=== PATIENT | female | born 1940 | race Caucasian/White ===

== ENCOUNTER 2017-07-11 10:55 | Day surgery (SDC) | payer OTHER ==
[2017-07-07 16:43] VITALS: BMI 20.7
[2017-07-11 11:19] VITALS: TEMP 97.5
[2017-07-11] MEDS ORDERED: PROPOFOL 20 ML ONE (11:41)
[2017-07-11] MEDS ORDERED: LIDOCAINE HCL/PF 2% SDV 5ML VIAL ONE (11:42)
[2017-07-11] MEDS ORDERED: GLYCOPYRROLATE 0.2 MG/1 ML VIAL ONE (12:33)
[2017-07-11 13:24] VITALS: BP 132/66; PULSE 74
--- NOTE | 2017-07-12 12:34 | PATH ---
Surgical Pathology Report Patient Name: MARLIN LATHAM [facility]. Rec. #: [id number] /Age/Gender: 1940 (Age: 77) / F Account: [id number] Location: Taken: 07/11/2017 Received: 07/11/2017 Reported: 07/12/2017 Physicians: Paul Portillo M.D. Specimen(s) Received A: BX DUODENUM B: BX ANTRUM Clinical History Preoperative diagnosis: Iron deficiency anemia, GERD, history of colonic polyp Postoperative diagnosis: Gastritis, duodenitis Final Diagnosis A. DUODENUM, BIOPSY: DUODENAL MUCOSA WITH NO PATHOLOGIC CHANGES. NO HISTOLOGIC EVIDENCE OF GLUTEN SENSITIVE ENTEROPATHY (CELIAC SPRUE) IDENTIFIED. B. STOMACH, ANTRUM, BIOPSY: GASTRIC ANTRAL AND MUCOSA WITH NO PATHOLOGIC CHANGES. NO H. PYLORI IDENTIFIED WITH DIFF-QUIK STAIN. Electronically Signed Olu Kumar M.D. Gross Description A. Received in formalin, labeled "duodenum" is a roche, irregular portion of soft tissue measuring 0.3 cm. in greatest dimension. The specimen is submitted in toto in one cassette. B. Received in formalin, labeled "antrum" are 2 roche, irregular portions of soft tissue measuring 0.3 and 0.5 cm. in greatest dimension. The specimens are submitted in toto in one cassette. 07/11/201707/11/2017
== END 2017-07-11 14:02 | disposition home or self-care (01) ==
LOC: FASU-ENDO 10:55
PROVIDERS: ATTEND Internal Medicine Gastroenterology
PROC: 0DB68ZX Excision of Stomach, Via Natural or Artificial Opening Endoscopic, Diagnostic (ICD-10-PCS; 2017-07-11)
PROC: 0DJD8ZZ Inspection of Lower Intestinal Tract, Via Natural or Artificial Opening Endoscopic (ICD-10-PCS; principal; 2017-07-11 12:21)
PROC: 0DB98ZX Excision of Duodenum, Via Natural or Artificial Opening Endoscopic, Diagnostic (ICD-10-PCS; 2017-07-11 12:21)
DX: D50.9 Iron deficiency anemia, unspecified (principal); Z86.010 Personal history of colon polyps; K44.9 Diaphragmatic hernia without obstruction or gangrene; K29.80 Duodenitis without bleeding; I25.10 Atherosclerotic heart disease of native coronary artery without angina pectoris; Z85.3 Personal history of malignant neoplasm of breast; E78.00 Pure hypercholesterolemia, unspecified
CPT/HCPCS: 88305-TC; 88312-TC